=== PATIENT | male | born 1970 | race Caucasian/White ===

== ENCOUNTER → 2023-10-23 | Outpatient (CLI) | payer OTHER ==
--- NOTE | 2023-10-23 14:41 | CT ---
EXAMINATION TYPE: CT chest w con CT DLP: 389.7 mGycm, Automated exposure control for dose reduction was used. DATE OF EXAM: 10/23/2023 2:30 PM COMPARISON: None. CLINICAL INDICATION:Male, 52 years old with history of R91.8 ABNORMAL LUNG FIELD; PHH, Mediastinal ma ss found on prior Chest XR. TECHNIQUE: Multiple axial images were obtained through the chest. Sagittal and coronal reformats were created for review. Contrast used:100ml mL of Isovue 300 with IV Contrast (None if empty) Oral contrast used: (None if empty) FINDINGS: LUNGS/ PLEURA: Left upper lung calcified granuloma. Left lower lung pulmonary micronodules. 3 mm righ t upper lung pulmonary nodule. Within the right lower lung, suspect involving the posterior mediastinum there is a predominantly cys tic area measuring up to 7.5 cm. There is associated partial atelectasis adjacent to the mass. [employer] al layering debris is appreciated. No evidence of internal vascularity is appreciated. AIRWAY: Patent and unremarkable. HEART: Size within normal limits. MEDIASTINUM: Partially calcified left prevascular space lymph node. Additional partially calcified le ft hilar lymph node. VASCULATURE: No aortic aneurysm. MUSCULOSKELETAL: No acute osseous abnormalities SOFT TISSUES/LYMPH NODES: Unremarkable. LOWER NECK: No significant findings. UPPER ABDOMEN: No significant findings. IMPRESSION: 1. Right lower lung/posterior mediastinal cystic lesion. 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 Consider short-term follow-up CT chest to assess stabili ty. 2. Scattered partially calcified mediastinal lymph nodes, likely sequela of prior granulomatous disea se.
== END | disposition home or self-care (01) ==
LOC: RADCTMAIN 14:00
PROVIDERS: ATTEND Internal Medicine
DX: J98.4 Other disorders of lung (principal); R91.8 Other nonspecific abnormal finding of lung field
CPT/HCPCS: 71260; Q9967

== ENCOUNTER → 2023-10-28 | Outpatient (CLI) | payer OTHER ==
--- NOTE | 2023-10-28 15:26 | P.GSHP ---
History of Present Illness H&P Date: 10/28/23 Chief Complaint: Bronchogenic cyst Mr Gutierrez is a 52 year-old M who has no known medical history who presented to an urgent care with sob and flank pain in [place]. He was given steroids and abx for possible PNA. 1 week later due to on-going symptoms he underwent CT scan which revealed a large cyst in the right chest which appears to be a bronchogenic cyst coming from the right lower lobe. The patient does smoke 2ppd and has an 80 pack year smoking history. He is trying to cut down and quit. He denies any significant symptoms otherwise. His symptoms have essentially resolved. He denies fevers, chills, sob, wheezing, hemoptysis and does have complaints of chronic cough. - Constitutional Constitutional: Reports as per HPI - EENT Ears, nose, mouth and throat: Reports as per HPI - Cardiovascular Cardiovascular: Reports as per HPI, Reports dyspnea on exertion - Respiratory Respiratory: Reports as per HPI, Reports cough, Reports pain on inspiration - Gastrointestinal Gastrointestinal: Reports as per HPI Past Medical History Past Medical History: No Reported History History of Any Multi-Drug Resistant Organisms: None Reported Past Surgical History: No Surgical Hx Reported Past Psychological History: No Psychological Hx Reported Smoking Status: Current every day smoker Past Alcohol Use History: None Reported Past Drug Use History: Marijuana Surgical - Exam - General well nourished, no distress - Eyes PERRL absent: ptosis - Neck no masses lymphadenopathy: absent - Respiratory normal respiratory effort, clear to auscultation - Cardiovascular Rhythm: regular Heart Sounds: normal: S1, S2 - Abdomen Abdomen: soft, non tender Results FEV 1 - 3L (90%) DLCO 65% - Imaging CT scan - chest: report reviewed, image reviewed Assessment and Plan Assessment: This is a 52 year-old M with a symptomatic right sided bronchogenic cyst. Plan: Will plan for R VATS, Excision of bronchogenic cyst November 27. Time with Patient: Greater than 30
== END | disposition home or self-care (01) ==
LOC: LABWHC1 09:32
PROVIDERS: ATTEND Internal Medicine Critical Care Medicine
DX: J98.4 Other disorders of lung (principal)
CPT/HCPCS: 36415; 85652

== ENCOUNTER → 2023-11-06 | Outpatient (CLI) | payer OTHER ==
[2023-11-06] MEDS: TUBERCULIN PPD (SKIN TEST) 5 UNIT/0.1 ML (MDV) VIAL INTRADERMA NR (14:03)
[2023-11-06 14:32] VITALS: BP 143/84; PULSE 104; RESP 16; TEMP 97.9
== END ==
LOC: PROCWHC3 13:52
PROVIDERS: ATTEND Internal Medicine Critical Care Medicine
DX: J85.2 Abscess of lung without pneumonia (principal)
CPT/HCPCS: 86580

== ENCOUNTER → 2023-11-19 | Outpatient (CLI) | payer OTHER ==
[2023-11-19 10:18] LABS: INR 0.9 (<1.2); Partial Thromboplastin Time 25.3 sec (22.0-30.0); Prothrombin Time 9.8 sec (10.0-12.5)
[2023-11-19 16:02] LABS: Basophils # (A) 0.09 X 10*3/uL (0.00-0.10); Basophils % (A) 0.9 %; Eosinophils # (A) 0.35 X 10*3/uL (0.04-0.35); Eosinophils % (A) 3.3 %; HCT 48.2 % (39.6-50.0); HGB 16.5 g/dL (13.0-17.0); Lymphocytes # (A) 3.19 X 10*3/uL (0.90-5.00); Lymphocytes % (A) 30.5 %; MCH 32.1 pg (27.0-32.0); MCHC 34.2 g/dL (32.0-37.0); MCV 93.8 FL (80.0-97.0); Mean Platelet Volume 9.5 FL (9.5-12.2); Monocytes # (A) 0.58 X 10*3/uL (0.20-1.00); Monocytes % (A) 5.5 %; NRBC Per 100 WBC 0 X 10*3/uL (0.00-0.01); Neutrophils # (A) 6.23 X 10*3/uL (1.80-7.70); Neutrophils % (A) 59.5 %; Platelet Count 338 X 10*3/uL (140-440); RBC 5.14 X 10*6/uL (4.40-5.60); RDW 13.6 % (11.5-14.5); WBC 10.47 X 10*3/uL (4.50-10.00)
[2023-11-19 16:10] LABS: Blood Urea Nitrogen 13.4 mg/dL (9.0-27.0); Carbon Dioxide 22.3 mmol/L (21.6-31.8); Chloride 105 mmol/L (96-109); Potassium 4.4 mmol/L (3.5-5.5); Sodium 140 mmol/L (135-145)
[2023-11-19 17:38] LABS: Appearance,Urine Clear (Clear); Bilirubin,Urine Negative (Negative); Blood,Urine Negative (Negative); Color,Urine Yellow (Yellow); Ketones,Urine Trace (Negative); Nitrite,Urine Negative (Negative); Specific Gravity,Urine 1.026 (1.001-1.030); Urobilinogen,Urine 0.2 E.U./DL
== END | disposition home or self-care (01) ==
LOC: LABPAT 09:09
PROVIDERS: ATTEND Thoracic Surgery (Cardiothoracic Vascular Surgery)
DX: Z01.812 Encounter for preprocedural laboratory examination (principal); R58 Hemorrhage, not elsewhere classified; R53.83 Other fatigue; Z79.899 Other long term (current) drug therapy
CPT/HCPCS: 80051; 81003; 82565; 84520; 85025; 85610; 85730; 86850; 86900; 86901; 87086; 93005

== ENCOUNTER 2023-11-28 05:47 | Inpatient (IN) | payer OTHER ==
[2023-11-26 12:44] VITALS: BMI 32.3
[2023-11-28] MEDS: LIDOCAINE 1% (10MG/ML) FOR IV START INTRADERMA PRN (06:44)
[2023-11-28] MEDS: LACTATED RINGERS 1,000 ML IV SCH (06:44)
[2023-11-28] MEDS: DEXAMETHASONE SOD PHOSPHATE 4 MG/ML 1 ML VIAL IV ONE (06:45)
[2023-11-28] MEDS: SCOPOLAMINE 1 MG/72 HR PATCH TRANSDERM ONE (06:46)
[2023-11-28] MEDS: ONDANSETRON 4 MG/2 ML VIAL IVP ONE (06:46)
[2023-11-28 06:53] LABS: Glucose,Whole Blood 96 mg/dL (70-110)
[2023-11-28] MEDS: fentaNYL (PF) 50 MCG/1 ML VIAL IVP ONE (07:02)
[2023-11-28] MEDS: MIDAZOLAM 2 MG/2 ML VIAL IVP ONE ×2 (07:02→09:36)
[2023-11-28] MEDS ORDERED: NEOSTIGMINE 1 MG/ML 10 ML VIAL ONE (07:43)
[2023-11-28] MEDS ORDERED: fentaNYL (PF) 50 MCG/ML 2 ML AMP ONE (07:43)
[2023-11-28] MEDS ORDERED: ROCURONIUM 10 MG/ML (5 ML VIAL) IV ONE (07:43)
[2023-11-28] MEDS ORDERED: PROPOFOL 10 MG/ML 20 ML VIAL IV ONE (07:43)
[2023-11-28] MEDS ORDERED: ROPIVACAINE 5 MG/ML 30 ML VIAL ONE (07:43)
[2023-11-28] MEDS ORDERED: HYDROmorphone (PF) 1 MG/ML ONE (07:43)
[2023-11-28] MEDS ORDERED: GLYCOPYRROLATE 0.2 MG/ML 2 ML VIAL ONE (07:43)
[2023-11-28] MEDS ORDERED: LIDOCAINE 1% INJ 10MG/ML (20 ML MDV) ONE (07:43)
[2023-11-28] MEDS ORDERED: SUCCINYLCHOLINE CHLORIDE 200 MG/10 ML VIAL IV ONE (07:43)
[2023-11-28] MEDS: BUPIVACAINE (PF) 0.5% 30 ML VIAL SQ ONE ×2 (08:10)
--- NOTE | 2023-11-28 09:22 | P.OP ---
Date of Procedure: 11/28/23 Preoperative Diagnosis: Right Bronchogenic cyst Postoperative Diagnosis: Right sided para-spinal cyst Procedure(s) Performed: 1. Bronchoscopy 2. Right video assisted thorascopic surgery with excision of para-spinal cyst 3. Intercostal nerve block - 3 levels Implants: None Anesthesia: OMARA Surgeon: Jack Hartman Estimated Blood Loss (ml): 25 Pathology: other (Right cyst fluid for cytology and culture. Right para-spinal cyst for permanent) Condition: stable Disposition: PACU Indications for Procedure: This is a 53 year-old M who presented to an urgent care with sob and flank pain. The patient underwent Ct of the chest which revealed a large cyst which is thought to be a bronchogenic cyst. We recommended resection. Operative Findings: Large para-spinal cyst. Fluid evacuated and decompressed. Description of Procedure: The patient was brought to the operating room and placed supine. He underwent general anesthesia and was intubated with a double lumen tube. Bronchoscopy was performed to check tube placement and for diagonstic purposes. His airway was patent without any abnormalities especially in the right lower lobe. He was placed in the left lateral decubitus postion and his right chest was prepped and draped. Right lung was isolated. I made a 2cm incision in the 7th intercostal space posterior axillary line. Two additional 2cm incisions were made in the 5th and 9th intercostal spaces anteriorly. Intercostal nerve block was performed in all three spaces. There was good lung isolation and a large fluid filled cyst was noted abutting the spine. The harmonic scalpel was used to resect the cyst off the paraspinal muscle. This was placed in a retrieval bag and removed and sent to pathology. Hemostasis was achieved and a 28F chest tube was inserted. Two lung ventilation was resumed and all incisions closed in layers.
[2023-11-28] MEDS: HYDROmorphone 1 MG/ML 1 ML SYRINGE IVP ONE (09:32)
[2023-11-28] MEDS: HYDROmorphone 0.5 MG/0.5 ML SYRINGE IVP PRN (10:02)
[2023-11-28] MEDS: droPERidol 5 MG/2 ML VIAL IVP ONE (10:02)
--- NOTE | 2023-11-28 10:18 | XR ---
EXAMINATION TYPE: XR chest 1V portable DATE OF EXAM: 11/28/2023 Comparison: CT 10/23/2023 Clinical History: 53-year-old male post op Findings: Patient rotated towards the right ultrasound and normal cardiac and mediastinal contours. Low lung vo lumes and crowded vascular markings. Right-sided chest tube is present. Diffuse interstitial and patc hy bibasilar opacities, left greater than right. No appreciable pneumothorax. Impression: 1. Portable exam further limited by patient rotation and hypoventilatory changes. Patchy mid and lowe r lung opacities. Right-sided chest tube. No appreciable pneumothorax. 2. Note a few scattered pulmonary nodules on the RIGHT on the patient's 10/23/2023 CT. These measure u p to 5 mm, axial image 16, 20, 24, and 34. Six-month follow-up CT to reassess these nodules.
[2023-11-28] MEDS: MEPERIDINE 50 MG/ML SYRINGE IVP ONE (11:20)
[2023-11-28] MEDS ORDERED: IPRATROPIUM-ALBUTEROL 3 ML NEB IH PRN (12:52)
[2023-11-28] MEDS ORDERED: ONDANSETRON 4 MG/2 ML VIAL IVP PRN (12:52)
[2023-11-28] MEDS: traMADol 50 MG TAB PO PRN (13:14)
[2023-11-28] MEDS: KETOROLAC 15 MG/ML 1 ML VIAL IVP SCH (13:15)
[2023-11-28] MEDS: DEXTROSE 5%-0.45% NACL 1,000 ML IV SCH (14:01)
--- NOTE | 2023-11-28 15:19 | P.ANPRN ---
Procedure Note - Anesthesia - Nerve Block Performed Right Erector Spinae Single Time Out Performed: Yes (0702) Date of Procedure: 11/28/23 Procedure Start Time: :03 Procedure Stop Time: :07 Location of Patient: PreOp Indication: Acute Post-Operative Pain, Requested by Surgeon Specifically requested for management of pain by DrErika: Jack Hartman Sedation Type: Sedate with meaningful contact maintained Preparation: Sterile Prep Position: Sitting Catheter: None Needle Types: Pajunk Needle Gauge: 21 Ultrasound used to visualize needle placement: Yes Ultrasound used to observe medication spread: Yes Injectate: 0.5% Ropivacaine (see comment for volume) (30cc) Blood Aspirated: No Pain Paresthesia on Injection Noted: No Resistance on Injection: Normal Image Stored and Saved: Yes Events: Uneventful and Well Tolerated
--- NOTE | 2023-11-28 15:20 | P.ANPRN ---
Procedure Note - Anesthesia - Invasive Line Right Arterial Line Time Out Performed: Yes (0702) Date of Procedure: 11/28/23 Time of Procedure: 07:08 Location of Patient: PreOp Preparation: Sterile Prep, Sterile Dressing Arterial Line Location: Radial (right) Ultrasound Used: Yes Purpose - Visualization and Identification of Vasculature: Yes Needle Guage: 20g Image Stored and Saved: Yes Narrative: Invasive line placement per sterile protocol utilized. Arterial line placed in 1 attempt with ultrasound. Lumen blood flushed and then secured. Dressed
[2023-11-28] MEDS: ACETAMINOPHEN TAB 500 MG TAB PO PRN (16:48)
[2023-11-28] MEDS: HEPARIN SODIUM,PORCINE 5,000 UNIT/ML 1 ML VIAL SQ SCH (16:49)
[2023-11-28] MEDS: IPRATROPIUM-ALBUTEROL 3 ML NEB IH SCH (17:25)
[2023-11-29] MEDS: PANTOPRAZOLE 40 MG TABLET PO SCH (06:36)
--- NOTE | 2023-11-29 09:06 | XR ---
EXAMINATION TYPE: XR chest 2V DATE OF EXAM: 11/29/2023 COMPARISON: 11/28/2023 HISTORY: 53-year-old male post lung surgery TECHNIQUE: PA and lateral views FINDINGS: Right-sided chest tube now present. There is a small radial pneumothorax measuring 1 cm. The heart is normal size. Some patchy bibasilar opacities are demonstrated. Subcutaneous emphysema lower right ch est wall. IMPRESSION: 1. Right-sided chest tube with a small 1 cm right apical pneumothorax. 2. Patchy bibasilar opacities, probably atelectasis.
[2023-11-29 09:12] LABS: Basophils % (A) 0 %; Eosinophils # (A) 0.2 k/uL (0-0.7); Eosinophils % (A) 1 %; HCT 39.6 % (39.0-53.0); HGB 13.1 gm/dL (13.0-17.5); Lymphocytes # (A) 3.4 k/uL (1.0-4.8); Lymphocytes % (A) 23 %; MCH 31.4 pg (25.0-35.0); Mean Platelet Volume 7.5; Monocytes # (A) 0.9 k/uL (0-1.0); Monocytes % (A) 6 %; Neutrophils # (A) 10.3 k/uL (1.3-7.7); Neutrophils % (A) 68 %; Platelet Count 264 k/uL (150-450); RBC 4.17 m/uL (4.30-5.90); RDW 13.5 % (11.5-15.5); WBC 15.1 k/uL (3.8-10.6)
[2023-11-29 09:25] LABS: African American GFR (CKD) >90 (>60 ml/min/1.73 sqM); Anion Gap 4 mmol/L; Blood Urea Nitrogen 18 mg/dL (9-20); Calcium 9.2 mg/dL (8.4-10.2); Carbon Dioxide 24 mmol/L (22-30); Chloride 109 mmol/L (98-107); Glucose 93 mg/dL (74-99); Non-African American GFR(CKD) >90 (>60 ml/min/1.73 sqM); Potassium 4.3 mmol/L (3.5-5.1); Sodium 137 mmol/L (137-145)
--- NOTE | 2023-11-29 12:02 | P.PN ---
Subjective Progress Note Date: 11/29/23 Principal diagnosis: Right-sided paraspinal cyst. Past medical history significant for chronic ongoing nicotine dependence and occasional marijuana use. POD #1 bronchoscopy, right video-assisted thoracoscopic surgery with excision of paraspinal cyst, intercostal nerve block3 levels. The patient was seen and examined in follow-up today November 29, 2023 at his bedside on the third floor cardiac stepdown unit. He is currently laying in bed, is awake, alert, oriented x 3 and is in no acute apparent distress. Family member is present at his bedside. The patient denies any complaints of shortness of breath at this time, although is complaining of some surgical type pain to his right chest tube insertion site and with taking deep breath. Oxygen saturations are 93% on room air and he is achieving 1500 mL on his incentive spirometry with encouragement. He reports he has been up ambulating in the cardiac stepdown unit hallway with standby assistance from nursing and family. Tolerating well and denies any complaints of shortness of breath. Right pleural chest tube remains in place to waterseal. No air leak is present. Draining thin serosanguineous drainage with 80 mL output in the last 8 hours and 160 mL output since surgery. Chest x-ray and laboratory results were reviewed. Objective - Vital Signs Vital signs: Vital Signs Temp 98.0 F 11/29/23 07:53 Pulse 45 L 11/29/23 09:00 Resp 16 11/29/23 07:53 BP 96/58 11/29/23 07:53 Pulse Ox 92 L 11/29/23 07:53 FiO2 21 11/29/23 09:00 Intake & Output 11/28/23 11/29/23 11/29/23 18:59 06:59 18:59 Intake Total 1500 240 Output Total 121 113 Balance 1379 127 Intake: IV 1500 Oral 240 Output: Chest Tube Drainage 0 Chest Tube Right Lateral 0 Chest Drainage 96 113 Right Chest 96 113 Estimated Blood Loss 25 Other: Voiding Method Toilet Toilet # Voids 2 - Exam CONSTITUTIONAL: Appears comfortable, cooperative, no acute distress RESPIRATORY: Lungs sounds diminished bilaterally. Respirations symmetrical, nonlabored. Currently on room air with oxygen saturation 93%. Able to achieve 1500 mL on incentive spirometry. Strong cough. CARDIOVASCULAR: S1, S2 present. Regular rate and rhythm, sinus bradycardia on telemetry. Palpable peripheral pulses bilaterally. No edema present. No calf pain or tenderness noted. SCDs present. GASTROINTESTINAL: Abdomen soft, nontender, nondistended. Active bowel sounds present 4 quadrants. Tolerating diet. GENITOURINARY: Continues to void clear, yellow urine. INTEGUMENTARY: Skin is warm and dry with evidence of good perfusion. Right thoracic incisions well approximated and covered with dry intact dressing. NEUROLOGIC: Cranial nerves II through XII intact. No focal deficits. MUSKULOSKELETAL: Able to move all extremities, strength equal bilaterally, gait normal. PSYCHIATRIC: Alert and oriented to person place and time, appropriate affect, intact judgment and insight. INVASIVE LINES AND TUBES: Right pleural chest tube present and is to waterseal, no air leaks present. Right pleural chest tube with 80 mL serosanguineous drainage overnight, 160 mL in the last 24 hours. - Allied health notes Allied health notes reviewed: nursing - Labs CBC & Chem 7: 11/29/23 08:30 11/29/23 08:30 Labs: Abnormal Lab Results - Last 24 Hours (Table) 11/29/23 11/29/23 Range/Units 08:30 08:30 WBC 15.1 H (3.8-10.6) k/uL RBC 4.17 L (4.30-5.90) m/uL Neutrophils # 10.3 H (1.3-7.7) k/uL Chloride 109 H (98-107) mmol/L Microbiology - Last 24 Hours (Table) 11/28/23 09:00 Gram Stain - Preliminary Cyst Body Fluid Culture - Preliminary - Imaging and Cardiology Chest x-ray: report reviewed, image reviewed Assessment and Plan Assessment: Right-sided paraspinal cyst, status post right video-assisted thoracoscopic surgery with excision of paraspinal cyst Chronic ongoing nicotine dependence Plan: We will remove his right pleural chest tube today. We will repeat a chest x-ray 3 hours after chest tube has been removed. Encourage use of incentive spirometry 10 times every hour while awake. Increase activity as tolerated. Out of bed for all meals. Pain control per current as needed orders. GI and DVT prophylaxis Discharge planning is in place, anticipate discharge home within the next 24 hours. The importance of smoking cessation was discussed with the patient. He will be given the number to [email or web address] on discharge. Pathology results remain pending, will continue to follow. More recommendations to follow based on patient's clinical course. Time with Patient: Greater than 30
--- NOTE | 2023-11-29 13:01 | P.CNPUL ---
History of Present Illness Consult date: 11/29/23 Requesting physician: Jack Hartman Reason for consult: lung mass, abnormal CXR/CT, other Chief complaint: Abnormal CAT scan. History of present illness: Pulmonary consult dated November 29, 2023. 53-year-old male seen by my partner, and also Dr. Hartman, and cardiothoracic surgery, for an abnormal CT scan which showed a large cyst, in the right chest. The patient was referred, for surgical evaluation, and was seen, in late October, by cardiothoracic surgery. The patient does have a history of heavy tobacco use, 2 packs a day, for 40 years. Other medical history is not noted. The patient is seen today, in room 367. He is currently on room air. He is not receiving any IV fluids. He is postop day #1. The patient will underwent a bronchoscopy, a right video-assisted thoracoscopic excision of a bronchogenic cyst, and intercostal nerve block, at 3 levels. It was done under general anest hesia. Currently, other than pain, the patient is doing very well. Laboratory data today includes a white count 15.1, hemoglobin 13.1, hematocrit 39.6, and a platelet count of 264,000. Sodium 137, potassium 4.3, chlorides 109, CO2 24, BUN 18, creatinine 0.84. Glucose is 93. Calcium is 9.2. Chest x-ray earlier today, shows a right-sided chest tube, which is subsequently been removed. Review of Systems REVIEW OF SYSTEMS: CONSTITUTIONAL: [Negative.] NEUROLOGIC: [ Negative.] HEENT: [ Negative.] CARDIAC: [Negative.] PULMONARY: [Negative.] GI: [Negative.] : [Negative.] RHEUMATOLOGIC: [ Negative.] IMMUNOLOGIC: [ Negative.] ENDOCRINE: [Negative. ] DERMATOLOGIC: [Negative.] Past Medical History Past Medical History: GERD/Reflux, Hyperlipidemia, Osteoarthritis (OA) Additional Past Medical History / Comment(s): Mass to rt lung dx 10-15-23. OA rt shoulder. History of Any Multi-Drug Resistant Organisms: None Reported Past Surgical History: No Surgical Hx Reported Additional Past Surgical History / Comment(s): Dental implants. Past Anesthesia/Blood Transfusion Reactions: Motion Sickness, Postoperative Nausea & Vomiting (PONV) Smoking Status: Current every day smoker - Past Family History Father Family Medical History: No Reported History Medications and Allergies Home Medications Medication Instructions Recorded Confirmed Type HYDROcodone/APAP 5-325MG [[place] 1 tab PO DIRECTED 11/28/23 11/28/23 History 5-325] Allergies Allergy/AdvReac Type Severity Reaction Status Date / Time bupropion [From Zyban] Allergy Rash/Hives Verified 11/28/23 06:26 Physical Exam Osteopathic Statement: *. No significant issues noted on an osteopathic structural exam other than those noted in the History and Physical/Consult. Vitals: Vital Signs Temp Pulse Pulse Resp BP Pulse Ox FiO2 11/29/23 12:06 98.6 F 49 L 16 97/61 94 L 11/29/23 09:10 50 L 11/29/23 09:00 45 L 21 11/29/23 07:53 98.0 F 48 L 16 96/58 92 L 11/29/23 04:00 98.4 F 61 19 104/65 91 L 11/29/23 02:00 82 20 11/29/23 00:00 98.2 F 82 19 105/62 92 L 11/28/23 20:00 98.5 F 64 20 102/65 92 L 11/28/23 17:28 94 L 11/28/23 15:55 98.5 F 69 16 113/75 97 11/28/23 13:30 98.2 F 94 26 H 132/87 95 Intake and Output 11/28/23 11/29/23 11/29/23 22:59 06:59 14:59 Intake Total 240 Output Total 35 78 Balance 205 -78 Intake: Oral 240 Output: Chest Tube Drainage 0 Chest Tube Right Lateral 0 Chest Drainage 35 78 Right Chest 35 78 Other: Voiding Method Toilet Toilet Toilet # Voids 2 No acute distress, oriented 3. Currently on room air. No respiratory distress. No use of accessory muscles. HEENT examination is grossly unremarkable. Mucous membranes are moist. No oral lesions. Neck supple. Full range of motion. No adenopathy thyromegaly or neck vein dis tention. Cardiovascular examination reveals regular rhythm rate. S1-S2 normal. No S3 or S4. No discernible murmur noted. Heart rate 60 beats a minute. Lungs reveal mild scattered rhonchi. No wheezes or crackles. Breath sounds equal bilaterally. Room air saturation 94%. Abdomen soft bowel sounds are heard. No masses or tenderness. Extremities are intact. No cyanosis clubbing or edema. Skin is without rash or lesion. Neurologic examination is brief but nonfocal. Results - Laboratory Findings CBC and BMP: 11/29/23 08:30 11/29/23 08:30 Abnormal lab findings: Abnormal Labs 11/29/23 11/29/23 08:30 08:30 WBC 15.1 H RBC 4.17 L Neutrophils # 10.3 H Chloride 109 H - Diagnostic Findings Chest x-ray: image reviewed Assessment and Plan Assessment: Postop day #1, status post excision of a right sided bronchogenic cyst. History of ongoing significant tobacco use. Plan: Plan dated November 29, 2023. The patient is seen today in room 367. He is on room air. Is not receiving any IV fluids. Other than pain at the surgical site, he appears to be doing well. I have asked him to deep breathe, cough, and clear secretions, and continue to use the incentive spirometer, every hour while awake. I encouraged him to take the incentive spirometer at home, and use it while at home. The patient will follow-up with cardiothoracic surgery, and I am sure he will follow-up with my partner. The patient is counseled about the importance of smoking cessation. Vital signs are stable. A repeat chest x-ray has been ordered. The right-sided chest tube has been removed. Time with Patient: Greater than 30
--- NOTE | 2023-11-29 13:41 | XR ---
EXAMINATION TYPE: XR chest 1V portable DATE OF EXAM: 11/29/2023 Comparison: Earlier today at 7:06 AM Clinical History: 53 year-old male Post chest tube removal Findings: Heart mildly enlarged. Redemonstrated patchy left basilar opacity now with a trace left effusion. Rig ht apical pneumothorax measuring 4 mm (10 mm this morning. Right chest tube removed. Minimal residual subcutaneous emphysema on the right. Impression: 1. Hypoventilatory changes with removal of the right chest tube. Trace residual right apical pneumoth orax measuring 4 mm versus 10 mm in the morning. 2. Development of a small left effusion with adjacent atelectasis and/or consolidation.
[2023-11-29 15:42] VITALS: BP 97/59; PULSE 56; RESP 18; TEMP 98.1
--- NOTE | 2023-11-29 16:15 | P.DS ---
Providers Date of admission: 11/28/23 05:47 Expected date of discharge: 11/29/23 Attending physician: Jack Hartman MD Consults: 11/28/23 12:52 Consult Physician Routine Consulting Provider: Vicente Mills Consult Reason/Comments: post VATS Do you want consulting provider notified?: Yes Primary care physician: [facility] Hospital Course: FINAL DIAGNOSIS: Right-sided paraspinal cyst, status post right video-assisted thoracoscopic surgery with excision of paraspinal cyst Chronic ongoing nicotine dependence PRINCIPAL PROCEDURE: 1. Bronchoscopy 2. Right video assisted thorascopic surgery with excision of para-spinal cyst 3. Intercostal nerve block - 3 levels HISTORY OF PRESENT ILLNESS: This is a 53-year-old gentleman who follows on an outpatient basis for his primary care with Dr. His mcgowan are and he also follows with Dr. Gama for his pulmonary care. The patient had presented to an urgent care with complaints of shortness of breath and flank pain while he was recently in [place]. Due to the complaints he was given steroids and antibiotics for possible pneumonia. The patient continued to have symptoms of shortness of breath post steroid and antibiotic treatment. He was subsequently scheduled for a CT scan of the chest which demonstrated a large cyst in the right chest possibly bronchogenic cyst coming from the right lower lobe. The patient does have a history of 2 pack/day smoking and has an 80 pack/year smoking history. Subsequently, due to the patient's symptoms and findings on the CT scan of the chest he was referred to Dr. Hartman from cardiothoracic surgery for further evaluation and treatment recommendations. Dr. Hartman met with the patient, treatment options were discussed, including right video- assisted thoracoscopic surgery and excision of bronchiogenic cyst. Risks and benefits of surgery were discussed and knowing and understanding the risks the patient wished to proceed with the surgical option. HOSPITAL COURSE: The patient was brought to the hospital on 11/28/23, taken to the preoperative area, prepared in the usual fashion, and subsequently taken to the operating room where Dr. Hartman performed a right video assisted thorascopic surgery with excision of para-spinal cyst. Upon completion of surgery the patient was extubated and taken to the recovery room for further monitoring. He was eventually admitted to 3 S. cardiac stepdown unit for further recovery and hemodynamic monitoring. The chest tube was subsequently placed to waterseal the night of surgery postoperatively, there was no air leak this morning and his chest tube was subsequently removed. A follow-up chest x-ray was stable post chest tube removal. His oxygen was titrated down, he was tolerating oral diet, his pain was controlled, and he was ready to be discharged to home on postoperative day #1. He received written and verbal instruction regarding her medications, activity restrictions, signs and symptoms requiring physician notification, and follow-up appointments. Plan - Discharge Summary Discharge Rx Participant: Yes New Discharge Prescriptions: Continue HYDROcodone/APAP 5-325MG [[place] 5-325] 1 tab PO DIRECTED Discharge Medication List HYDROcodone/APAP 5-325MG [[place] 5-325] 1 tab PO DIRECTED 11/28/23 [History] Follow up Appointment(s)/Referral(s): Yazan Jones MD [Primary Care Provider] - As Needed Jack Hartman MD [STAFF PHYSICIAN] - 12/09/23 2:00 pm Tigre Gama MD [STAFF PHYSICIAN] - 12/13/23 9:30 am Ambulatory/Diagnostic Orders: XR chest 2V [RAD.AMB] Time Frame: 12/02/23, Location: None Selected Discharge Disposition: HOME SELF-CARE
== END 2023-11-29 17:14 | disposition home or self-care (01) | DRG 465 ==
LOC: 2ORMAIN 05:47 → 3SCARD 12:35
PROVIDERS: ADMIT Thoracic Surgery (Cardiothoracic Vascular Surgery); ATTEND Thoracic Surgery (Cardiothoracic Vascular Surgery)
PROC: 3E0T3BZ Introduction of Anesthetic Agent into Peripheral Nerves and Plexi, Percutaneous Approach (ICD-10-PCS; 2023-11-28)
PROC: 0JB70ZZ Excision of Back Subcutaneous Tissue and Fascia, Open Approach (ICD-10-PCS; principal; 2023-11-28 07:30)
DX: M71.38 Other bursal cyst, other site (principal); E78.5 Hyperlipidemia, unspecified; J98.4 Other disorders of lung; M19.011 Primary osteoarthritis, right shoulder; F17.210 Nicotine dependence, cigarettes, uncomplicated; K21.9 Gastro-esophageal reflux disease without esophagitis; M19.90 Unspecified osteoarthritis, unspecified site; Z88.6 Allergy status to analgesic agent
CPT/HCPCS: 64999; 71045; 71046; 80048; 85025; 87070; 87075; 87102; 87116; 87205; 87206; 88305; 94640; 94760

== ENCOUNTER → 2024-01-02 | Outpatient (CLI) | payer OTHER ==
--- NOTE | 2024-01-06 12:05 | CT ---
EXAMINATION TYPE: CT ChestAbdPelvis w con DATE OF EXAM: 01/02/2024 INDICATION: Chest pain, recent mass removal, abdominal pain, LT thigh numbness COMPARISON: 11/02/2023 CT DLP: 1171.90 mGycm CONTRAST: Performed with Oral Contrast and with IV Contrast, patient injected with 100 mL of Isovue 300. TECHNIQUE: Axial images at 5 mm thick sections. Reconstructed images in the coronal plane. Delayed images through the kidneys. FINDINGS: CT CHEST: Portion of the thyroid visualized is normal. No suspicious lung nodules or focal infiltrates are present. There is a 1.3 cm lymph node in the pretracheal space. Some left aortopulmonic window lymphadenopathy may be present underlying calcification vascularity may be present. This measures 1.6 cm transverse. There is a 1.0 cm right hilar lymph node. Image 32. There is a 0.5 cm nodule anterior lateral right upper lung field. Series 3 image 23 present previousl y additional 0.6 cm nodule, series 3 image 27 present previously. There is some pleural thickening along the posterior medial right lung margin example image series 3 image 30. Small nodule may be present measuring 1.0 cm. Series 3 image 32 this may be new. Previous l arge mass in the posterior medial right lung base is not evident on the current exam. There is a stable calcification anterior left upper lung field. Series 3 image 24 The ascending aorta diameter at the level of the main pulmonary artery is 3.4 cm. The main pulmonary artery diameter at the bifurcation is 2.[address] ABDOMEN: Liver: Fatty infiltration is present. Spleen: Normal Pancreas: Normal Adrenal glands: The adrenal glands are normal. Gallbladder: Normal Kidneys: No masses are evident. No hydronephrosis is present. No cysts are present. Delayed images were obtained through the kidneys, which remain unremarkable. Aorta: Vascular calcification is within the aorta. Inferior vena cava: Normal. CT PELVIS: Loops of bowel within the abdomen and pelvis are normal. There are loops of bowel which are incom pletely distended or lack oral contrast limiting their evaluation. Appendix: Normal as visualized. Urinary bladder: Normal. Genitourinary structures: Prostate is prominent Osseous structures: No suspicious lytic or sclerotic lesions. IMPRESSION: 1. Scattered small stable appearing nodules. 2. Previous mass in the posterior medial lung has resolved. Residual pleural 1 cm nodular density may be present. Short-term follow-up is recommended.
== END | disposition home or self-care (01) ==
LOC: RADCTMAIN 09:27
PROVIDERS: ATTEND Internal Medicine
DX: R91.8 Other nonspecific abnormal finding of lung field (principal); R07.9 Chest pain, unspecified; R10.9 Unspecified abdominal pain
CPT/HCPCS: 71260; 74177; Q9967

== ENCOUNTER → 2024-01-23 | Outpatient (CLI) | payer OTHER ==
--- NOTE | 2024-01-23 19:59 | MR ---
EXAMINATION TYPE: MR tspine/lspine wo con DATE OF EXAM: 01/23/2024 COMPARISON: None HISTORY: Mid and lower back pain, radiates into left leg. CONTRAST: Performed utilizing 0 mL intravenous Gadavist gadolinium contrast. TECHNIQUE: Multiplanar, multiecho imaging on a 3.0 Char magnet is performed through the thoracic spi ne. Spinal cord maintains normal signal through its visualized course. Vertebral body alignment is normal. Vertebral body heights are preserved. Disc heights are preserved. Disc hydration levels are preserved. No spinal canal stenosis is evident. IMPRESSION: 1. No suspicious acute changes thoracic spine. EXAMINATION TYPE: MR tspine/lspine wo con DATE OF EXAM: 01/23/2024 COMPARISON: HISTORY: Mid and lower back pain, radiates into left leg. CONTRAST: 0 mL intravenous Gadavist. TECHNIQUE: Multiplanar, multisequence images of the lumbar spine were acquired. FINDINGS: L5-S1: No significant disc bulge or disc herniation. Disc desiccation present. No loss of disc height . No spinal canal stenosis. No foraminal stenosis. L4-L5: No significant disc bulge or disc herniation. Disc desiccation is present. No loss of disc hei ght. No spinal canal stenosis. No foraminal stenosis. L3-L4: No significant disc bulge or disc herniation. No spinal canal stenosis. No foraminal stenosi s. L2-L3: No significant disc bulge or disc herniation. No spinal canal stenosis. No foraminal stenosi s. L1-L2: No significant disc bulge or disc herniation. No spinal canal stenosis. No foraminal stenosi s. T12-L1: No significant disc bulge or disc herniation. No spinal canal stenosis. No foraminal stenos is. IMPRESSION: 1. Mild disc desiccation L4-5 L5-S1. 2. No suspicious abnormalities to account for left radicular pain
== END | disposition home or self-care (01) ==
LOC: RADMRIMAIN 18:22
PROVIDERS: ATTEND Internal Medicine
DX: M54.50 Low back pain, unspecified (principal); R20.2 Paresthesia of skin
CPT/HCPCS: 72146; 72148

== ENCOUNTER → 2024-06-01 | Outpatient (CLI) | payer OTHER ==
--- NOTE | 2024-06-01 12:12 | CT ---
EXAMINATION TYPE: CT chest w con CT DLP: 407.4 mGycm, Automated exposure control for dose reduction was used. 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 . Coronal and sagittal reformats reviewed. FINDINGS: LUNGS/ PLEURA: Left upper lung calcified granuloma is stable. Stable left lower lobe 5 mm solid pulmo nary nodule (series 4, image 32). Stable right upper lobe 4.5 mm pulmonary nodule (series 4, image 24 ). Stable 5.8 mm right upper lobe subpleural pulmonary nodule (series 4, image 27). No new or enlargi ng pulmonary nodules. Mild centrilobular emphysematous changes. Previously seen peripheral medial rig ht lower lobe cystic structure has again had surgical removal with some linear scarring in this regio n. No evidence recurrence. AIRWAY: Patent and unremarkable. HEART: Size within normal limits. No pericardial effusion MEDIASTINUM: Partially calcified left prevascular space lymph node. Additional partially calcified le ft hilar lymph node. These appear stable from prior exam. VASCULATURE: No aortic aneurysm. MUSCULOSKELETAL: No acute osseous abnormalities SOFT TISSUES/LYMPH NODES: Minimal bilateral gynecomastia. LOWER NECK: No significant findings. UPPER ABDOMEN: Multiple calcified small granulomas throughout the spleen. IMPRESSION: 1. Postsurgical changes from right lower lung/posterior mediastinal cystic lesion removal. No evidenc e recurrence with some trace scarring identified. Stable pulmonary nodules from prior exam measuring up to 5.8 mm. No new or enlarging pulmonary nodules. Follow-up CT chest in one year is recommended. 2. Similar sequelae of prior granulomatous disease. [facility], , 06/01/2024 12:10 PM
== END | disposition home or self-care (01) ==
LOC: RADCTMAIN 11:30
PROVIDERS: ATTEND Internal Medicine Critical Care Medicine
CPT/HCPCS: 71260

== ENCOUNTER → 2024-12-09 | Outpatient (CLI) | payer OTHER ==
--- NOTE | 2024-12-09 11:55 | XR ---
EXAMINATION TYPE: XR shoulder complete LT DATE OF EXAM: 12/09/2024 CLINICAL INDICATION: Male, 54 years old with history of R52 pain L shoulder, pain TECHNIQUE: Three views of the left shoulder are obtained. COMPARISON: None. FINDINGS: There is acute comminuted displaced fracture of the osseous glenoid. There is no glenohume ral joint dislocation. Acromioclavicular joint shows lirn-ax-[id number] narrowing without fracture. The re is a nonspecific 5 mm sclerotic focus in the superior humeral head favoring benign bone island. Th e visualized ribs are intact. IMPRESSION: There is acute comminuted displaced intra-articular fracture of the osseous glenoid. Adv ised orthopedic surgical referral. [facility], , 12/09/2024 11:53 AM
== END | disposition home or self-care (01) ==
LOC: RADXRMAIN 11:30
PROVIDERS: ATTEND Internal Medicine
DX: S42.142A Displaced fracture of glenoid cavity of scapula, left shoulder, initial encounter for closed fracture (principal); S49.92XA Unspecified injury of left shoulder and upper arm, initial encounter

== ENCOUNTER → 2024-12-24 | Outpatient (CLI) | payer OTHER ==
--- NOTE | 2024-12-24 08:18 | CT ---
EXAMINATION TYPE: CT shoulder LT wo con DATE OF EXAM: 12/24/2024 7:03 AM COMPARISON: Radiographs 12/09/2024. CT chest 06/01/2024. CLINICAL INDICATION: Male, 54 years old with h istory of S42.142A DISP FX OF GLENOID CAVITY OF SCAPULA; PHH, Lt shoulder, closed displaced fracture of glenoid cavity of LT scapula TECHNIQUE: CT of the left shoulder without contrast. Coronal and sagittal reformatted images and soft tissue and bone window were obtained for review. 3-D reconstruction was created on a separate workst atDeciZium. CT DLP: 458.50 mGycm, Automated exposure control for dose reduction was used. FINDINGS: There is an impacted fracture involving the anterior inferior quadrant of the glenoid. This results i n 4 mm of articular surface step-off and involves approximately 45% of the AP glenoid diameter. No os acromiale or Hill-Sachs deformity is seen. Tiny bone island superior aspect of the humeral head . No subluxation or dislocation. No atrophy of the rotator cuff musculature. Calcified mediastinal and left hilar lymph nodes compatible with prior granulomatous disease. 6 mm left upper lobe pulmonary nodule incidentally noted, unchanged from prior CT. 5 mm posterior left midlung pulmonary nodule, coronal image 68, unchanged from prior CT. Calcified granuloma anterior left upper lobe. Mild emphysematous change and some mosaic attenuation suggesting small airways disease. IMPRESSION: 1. Impacted fracture involving the anterior inferior quadrant of the glenoid resulting in a 4 mm chantale cular surface step-off. Approximately 45% of the AP glenoid diameter is involved. 2. A few, stable pulmonary nodules noted on the left. Refer to recommendation made on CT chest 2023. [facility], , 12/24/2024 8:15 AM
== END | disposition home or self-care (01) ==
LOC: RADCTMAIN 12-21 16:48
PROVIDERS: ATTEND Orthopaedic Surgery
DX: S42.142A Displaced fracture of glenoid cavity of scapula, left shoulder, initial encounter for closed fracture (principal); R91.8 Other nonspecific abnormal finding of lung field; X58.XXXA Exposure to other specified factors, initial encounter